=== PATIENT | female | born 1990 | race Caucasian/White ===

== ENCOUNTER 2022-03-26 19:15 | Emergency (ER) | payer OTHER | END 2022-03-26 20:39 | disposition home or self-care (01) | LOC: ER1 19:15 | DX: S13.9XXA Sprain of joints and ligaments of unspecified parts of neck, initial encounter (principal); V49.9XXA Car occupant (driver) (passenger) injured in unspecified traffic accident, initial encounter | CPT/HCPCS: 70450; 71045; 72125; 96374; 99284; J1885 ==